=== PATIENT | male | born 1970 | race Caucasian/White ===

== ENCOUNTER 2022-05-09 16:04 | Emergency (ER) | payer BC | END 2022-05-09 17:02 | disposition home or self-care (01) | LOC: LB.ED 16:04 | DX: K64.2 Third degree hemorrhoids (principal); E78.00 Pure hypercholesterolemia, unspecified; Z88.2 Allergy status to sulfonamides; Z79.899 Other long term (current) drug therapy; Z87.891 Personal history of nicotine dependence | CPT/HCPCS: 99282 ==